=== PATIENT | male | born 2000 | race Hispanic/Latino ===

== ENCOUNTER 2020-06-24 10:56 | Emergency (ER) | payer OTHER ==
[~2020-06-24] VITALS: Ht 175.3 cm; Wt 99.4 kg
[2020-06-24 12:49] VITALS: BP 136/69
== END 2020-06-24 12:49 | disposition home or self-care (01) ==
LOC: M ED 10:56
DX: Z04.1 Encounter for examination and observation following transport accident (principal)

== ENCOUNTER → 2023-01-06 | Outpatient (CLI) | payer OTHER | LOC: M PLAIMG 13:30 → MERGE 14:30 | PROVIDERS: ATTEND Physician Assistant | DX: M54.50 Low back pain, unspecified (principal) ==